=== PATIENT | male | born 1970 | race Caucasian/White ===

== ENCOUNTER 2016-12-30 15:13 | Emergency (ER) | payer SELFPAY ==
[~2016-12-30] VITALS: Wt 74.3 kg
[2016-12-30] MEDS ORDERED: IBUPROFEN 600 MG TAB PO ONE (16:00)
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
[2016-12-30] MEDS ORDERED: HYDROCODONE/APAP (5/325) TAB PO ONE (16:30)
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
[2016-12-30] MEDS ORDERED: IBUP800T25 PO (16:56)
[2016-12-30] MEDS ORDERED: HYDR-906 PO (16:56)
== END 2016-12-30 17:36 | disposition home or self-care (01) ==
LOC: FTE 15:13
DX: S22.41XA Multiple fractures of ribs, right side, initial encounter for closed fracture (principal); S52.202A Unspecified fracture of shaft of left ulna, initial encounter for closed fracture; Y08.89XA Assault by other specified means, initial encounter
CPT/HCPCS: 71100